=== PATIENT | female | born 1995 | race Two or more races ===

== ENCOUNTER 2024-10-27 21:23 | Emergency (ER) | payer OTHER ==
[~2024-10-27] VITALS: Ht 154.9 cm; Wt 72.1 kg
[~2024-10-27 21:23] MED LIST: NABUMETONE500 MG PO; PERCOCET 5/3251 TAB PO
[2024-10-27 23:16] LABS: BASO % 0.5 % (0.1-1.2); EOS # 0.04 (0.04-0.54); EOS % 0.3 % (0.7-7.0); LYMPH # 0.64 (1.18-3.74); LYMPH % 4.7 % (19.3-53.1); MEAN PLATELET VOLUME 8.70 fl (9.4-12.4); MONO # 1.32 (0.24-0.82); MONO % 9.7 % (4.7-12.5); NEUT # 11.08 (1.56-6.13); NEUT % 81.1 % (34.0-71.1); RED CELL DISTRIBUTION WIDTH 12.7 % (11.6-14.4)
[2024-10-27] MEDS ORDERED: GUAIFENESIN/DEXTROMETHORPHAN 100MG/10ML BLIST.PACK PO STA (23:27)
[2024-10-27] MEDS ORDERED: IPRATROPIUM BROMIDE 0.5 MG/2.5 ML AMPUL.NEB IH SCH (23:30)
[2024-10-27] MEDS ORDERED: METHYLPREDNISOLONE SOD SUCC 40 MG VIAL IV STA (23:30)
[2024-10-27] MEDS ORDERED: LEVALBUTEROL HCL 1.25 MG/3 ML SOLUTION IH SCH (23:30)
[2024-10-27] MEDS ORDERED: CETIRIZINE HCL 5 MG/5 ML ML PO STA (23:31)
[2024-10-27 23:38] LABS: ALT/SGPT 17.0 U/L (12-78); AST/SGOT 9.0 U/L (15-37); BILIRUBIN TOTAL 0.28 mg/dL (0.3-1.2); BUN CREA RATIO 7.0 (7.0-25.0); CREATININE SERUM 0.46 mg/dL (0.55-1.02); GFR 161.75; GLOBULINA 4.2 G/DL (2.4-3.5); GLUCOSE FASTING 87.0 mg/dL (65-100); OSMOLALITY SERUM 275.0 MOSM/KG (275-295)
[2024-10-27] MEDS ORDERED: METHYLPREDNISOLONE SOD SUCC 40 MG VIAL ONE (23:38)
[2024-10-27] MEDS ORDERED: CETIRIZINE HCL 5MG/5ML BLIST.PACK PO ONE (23:39)
[2024-10-27] MEDS ORDERED: GUAIFENESIN/DEXTROMETHORPHAN 100MG/10ML BLIST.PACK PO ONE (23:39)
[2024-10-27 23:43] LABS: COVID-19 AG POSITIVE (NEGATIVE)
[2024-10-27] MEDS ORDERED: LEVALBUTEROL HCL 1.25 MG/3 ML SOLUTION IH ONE (23:43)
[2024-10-27] MEDS ORDERED: IPRATROPIUM BROMIDE 0.5 MG/2.5 ML AMPUL.NEB IH ONE (23:43)
[2024-10-28] MEDS ORDERED: ZYRTEC10 M3 PO ×2 (01:42→01:43)
[2024-10-28] MEDS ORDERED: ALBUTEROL2.5 MG/3 M IH (01:42)
[2024-10-28] MEDS ORDERED: ZYNCOF 20-400120 ML PO (01:42)
== END 2024-10-28 01:51 ==
LOC: ER 21:23
PROVIDERS: General Practice
DX: O98.513 Other viral diseases complicating pregnancy, third trimester (principal); U07.1 COVID-19; Z3A.31 31 weeks gestation of pregnancy